=== PATIENT | female | born 1995 | race African-American/Black ===

== ENCOUNTER 2018-12-28 09:52 | Emergency (ER) | payer BC ==
[~2018-12-28] VITALS: Ht 172.7 cm; Wt 72.6 kg
[2018-12-28 11:47] LABS: URINE BILIRUBIN NEGATIVE (Negative); URINE BLOOD 2+ (Negative); URINE CLARITY SL CLOUDY; URINE COLOR YELLOW; URINE GLUCOSE-RANDOM* NEGATIVE (Negative); URINE KETONES NEGATIVE (Negative); URINE NITRITE-REFLEX NEGATIVE (Negative); URINE PROTEIN (DIPSTICK) NEGATIVE (Negative); URINE SPECIFIC GRAVITY <= 1.005 (1.005-1.035); URINE UROBILINOGEN 0.2 E.U./dl (0.2-1.0)
[2018-12-28 11:48] LABS: URINE LEUKOCYTES-REFLEX 3+ (Negative)
[2018-12-28 11:50] LABS: ABSOLUTE NEUTROPHILS 5.7 thou/uL (1.4-8.2); BASOPHILS 0.7 % (0.0-2.0); EOSINOPHILS 1.5 % (0.0-3.0); HEMATOCRIT 39.5 % (37.0-47.0); HEMOGLOBIN 13.3 gm/dL (12.0-15.0); LYMPHOCYTES 19.8 % (24.0-44.0); MCH 32.2 pg (26.0-34.0); MCHC 33.7 g/dL (28.0-37.0); MCV 95.6 fL (80.0-100.0); MONOCYTES 6.6 % (1.0-8.0); PLATELET COUNT 204 thou/uL (150-400); POLYS 71.4 % (36.0-66.0); RBC 4.13 mil/uL (4.20-5.00); RDW 13.2 % (10.5-14.5)
[2018-12-28 12:11] LABS: SQUAMOUS 4-10 Moderate /LPF (0-3)
[2018-12-28 12:12] LABS: CASTS None Seen /LPF (None Seen); CRYSTALS None Seen /LPF (None Seen); URINE RBC 3-10 Few /HPF (0-2); WBC CLUMPS Few (None Seen)
[2018-12-28] MEDS ORDERED: KEFLEX500 M1 PO (12:36)
[2018-12-28] MEDS ORDERED: PHENERGAN 25 MG25 M1 PO (12:36)
[2018-12-28 12:52] VITALS: BP 144/72
== END 2018-12-28 12:53 | disposition home or self-care (01) ==
LOC: ER 09:52
PROVIDERS: Emergency Medicine
DX: O20.0 Threatened abortion (principal); O23.41 Unspecified infection of urinary tract in pregnancy, first trimester; Z88.6 Allergy status to analgesic agent; Z3A.01 Less than 8 weeks gestation of pregnancy

== ENCOUNTER 2020-02-26 11:10 | Emergency (ER) | payer OTHER ==
[~2020-02-26] VITALS: Ht 172.7 cm; Wt 65.8 kg
[~2020-02-26 11:10] MED LIST: KEFLEX500 M1 PO; PHENERGAN 25 MG25 M1 PO
[2020-02-26 11:51] LABS: ABSOLUTE NEUTROPHILS 5.6 thou/uL (1.4-8.2); BASOPHILS 0.5 % (0.0-2.0); EOSINOPHILS 4.3 % (0.0-3.0); HEMATOCRIT 43.3 % (37.0-47.0); HEMOGLOBIN 14.4 gm/dL (12.0-15.0); LYMPHOCYTES 21.6 % (24.0-44.0); MCH 32.1 pg (26.0-34.0); MCHC 33.4 g/dL (28.0-37.0); MCV 96.1 fL (80.0-100.0); MONOCYTES 4.8 % (1.0-8.0); POLYS 68.8 % (36.0-66.0); RDW 13.7 % (10.5-14.5); WBC 8.1 thou/uL (4.0-11.0)
[2020-02-26 12:10] LABS: ANION GAP 14 mmol/L (7-16); BUN 14 mg/dL (7-18); CALCIUM 7.9 mg/dL (8.5-10.1); CHLORIDE 109 mmol/L (98-107); CO2 19 mmol/L (21-32); CREATININE 0.9 mg/dL (0.6-1.0); GLUCOSE 73 mg/dL (74-106); SODIUM 142 mmol/L (136-145)
[2020-02-26 12:11] LABS: POTASSIUM 3.6 mmol/L (3.5-5.1)
[2020-02-26 12:21] LABS: ALBUMIN 3.5 g/dL (3.4-5.0); SGOT 23 U/L (15-37); SGPT 26 U/L (30-65); TOTAL BILIRUBIN 0.5 mg/dL (0.2-1.0); TOTAL PROTEIN 7.8 g/dL (6.4-8.2); TROPONIN-I <0.06 ng/mL (<0.06)
--- NOTE | 2020-02-26 12:39 | EKG ---
[facility] [address] [place] [address] ELECTROCARDIOGRAM REPORT Name: PEDRO CONTRERAS Room #: REG ANA MARIA Purcell#: [id number] Admission: 02/26/20 Attend Phys: Discharge: Date of : 89 Report #: [id number] THIS REPORT FOR: cc: FAM - No family physician/PCP FAM - No family physician/PCP Shabbir Francis MD ~ <ELECTRONICALLY SIGNED> By: Shabbir Francis MD 02/26/20 1239 [id number] Shabbir Francis MD /EPI
[2020-02-26 12:40] LABS: PLATELET COUNT 226 thou/uL (150-400)
[2020-02-26 13:43] VITALS: BP 142/96
--- NOTE | 2020-02-27 07:29 | EKG ---
[facility] [address] [place] [address] ELECTROCARDIOGRAM REPORT Name: PEDRO CONTRERAS Room #: [facility] ANA MARIA Purcell#: [id number] Admission: 02/26/20 Attend Phys: Discharge: 02/26/20 Date of : 89 Report #: [id number] THIS REPORT FOR: cc: FAM - No family physician/PCP FAM - No family physician/PCP Joshua Truong MD FACC ~ <ELECTRONICALLY SIGNED> By: Joshua Truong MD, FACC 02/27/20 0729 1136 [id number] Joshua Truong MD, FACC /EPI
== END 2020-02-26 13:54 | disposition home or self-care (01) ==
LOC: ER 11:10
PROVIDERS: Physician Assistant
DX: R07.89 Other chest pain (principal); F17.210 Nicotine dependence, cigarettes, uncomplicated; Z90.89 Acquired absence of other organs; Z88.8 Allergy status to other drugs, medicaments and biological substances

== ENCOUNTER 2021-02-14 07:29 | Emergency (ER) | payer OTHER ==
[~2021-02-14] VITALS: Ht 172.7 cm; Wt 68.0 kg
[2021-02-14 12:35] VITALS: BP 137/78
== END 2021-02-14 12:58 | disposition home or self-care (01) ==
LOC: ER 07:29
PROVIDERS: Emergency Medicine
DX: N93.9 Abnormal uterine and vaginal bleeding, unspecified (principal); R10.2 Pelvic and perineal pain; F12.90 Cannabis use, unspecified, uncomplicated; F17.290 Nicotine dependence, other tobacco product, uncomplicated; Z98.890 Other specified postprocedural states; Z90.89 Acquired absence of other organs; Z79.899 Other long term (current) drug therapy